=== PATIENT | female | born 1985 | race Caucasian/White ===

== ENCOUNTER 2018-11-25 17:25 | Emergency (ER) | payer OTHER ==
[~2018-11-25] VITALS: Ht 167.6 cm; Wt 134.7 kg
[2018-11-25 17:31] VITALS: BP 127/78
--- NOTE | 2018-11-25 17:55 | NUR ---
Patient ambulated to bed 6
--- NOTE | 2018-11-25 18:10 | NUR ---
PATIENT PRESENTED TO ED AAOX4, GCS 15, STATED "I FEEL DISORIENTED, CONFUSED AND UNABLE TO FOCUS." PATIENT MENTIONED THAT SHE HAVEN'T TAKEN MEDICATIONS FOR 2 MONTHS NOW. C/O HEADACHE 4/10 THAT DOES NOT RADIATED, C/O N/V/D FOR ONE WEEK, RESPIRATIONS EVEN AND UNLABORED, IN NO ACUTE DISTRESS, ED PROVIDED MADE AWARE. HX: BIPOLAR, HYPOTHYROIDISM
[2018-11-25] MEDS ORDERED: NACL 0.9% 1,000 ML IV ONE (19:15)
--- NOTE | 2018-11-25 19:34 | NUR ---
Dr. Connolly evaluating patient at bedside.
[2018-11-25 19:43] LABS: BASOPHILS # (AUTO) 0.1 K/uL (0.00-0.22); BASOPHILS % (AUTO) 0.8 % (0.0-2.0); EOSINOPHILS # (AUTO) 0.2 K/uL (0-0.4); EOSINOPHILS % (AUTO) 2.5 % (0.0-4.0); HEMATOCRIT 45.3 % (36-48); HEMOGLOBIN 15.2 g/dL (12.0-16.0); LYMPHOCYTES # (AUTO) 2.3 K/uL (2.5-16.5); LYMPHOCYTES % (AUTO) 25.8 % (20.5-51.1); MEAN CORPUSCULAR HEMOGLOBIN 32 pg (27-31); MEAN CORPUSCULAR HGB CONC 34 g/dL (33-37); MEAN CORPUSCULAR VOLUME 94.1 fL (80-94); MONOCYTES # (AUTO) 0.5 K/uL (0.8-1.0); MONOCYTES % (AUTO) 5.9 % (1.7-9.3); NEUTROPHILS # (AUTO) 5.8 K/uL (1.8-7.7); PLATELET COUNT (AUTO) 294 K/uL (140-450); RED BLOOD CELL COUNT(AUTO) 4.81 MIL/uL (4.20-5.40); WHITE BLOOD COUNT (AUTO) 8.9 K/uL (4.8-10.8)
[2018-11-25 19:55] LABS: ANION GAP 11.4 (8-16); CREATININE 1.1 mg/dL (0.6-1.3); POTASSIUM 4.4 mmol/L (3.5-5.1)
[2018-11-25 20:09] LABS: ALBUMIN 4.1 g/dL (3.4-5.0); TOTAL BILIRUBIN 0.4 mg/dL (0.0-1.0)
[2018-11-25] MEDS ORDERED: LORazepam 2 MG/ML VIAL IVP ONE (20:10)
--- NOTE | 2018-11-25 20:22 | NUR ---
PATIENT REFUSED ATIVAN ORDER AT THIS TIME, DR. DEJESUS MADE AWARE.
--- NOTE | 2018-11-25 21:10 | NUR ---
CRITICAL LAB IS 249.84 TSH, ER MADE AWARE OF STATUS. MD TO SEE PT.
[2018-11-25 21:11] LABS: THYROID STIMULATING HORMONE 249.84 uIU/mL (0.34-3.74)
[2018-11-25 21:45] VITALS: BP 110/60
--- NOTE | 2018-11-25 21:45 | NUR ---
Patient discharged with v/s stable. Written and verbal after care instructions given and explained. Patient alert, oriented and verbalized understanding of instructions. Ambulatory with steady gait. All questions addressed prior to discharge. ID band removed. Patient advised to follow up with PMD. Rx of LEVOTHYROXINE 175 MCG given. Patient educated on indication of medication including possible reaction and side effects. Opportunity to ask questions provided and answered.
[2018-11-26] MEDS ORDERED: LEVOTHYROXINE 0.1 MG TAB PO SCH (06:30)
== END 2018-11-25 21:45 | disposition home or self-care (01) ==
LOC: MED 17:25
DX: E03.9 Hypothyroidism, unspecified (principal); F41.0 Panic disorder [episodic paroxysmal anxiety]; Z91.14 Patient's other noncompliance with medication regimen; Z90.710 Acquired absence of both cervix and uterus; Z88.2 Allergy status to sulfonamides
CPT/HCPCS: 36415; 80053; 84443; 85025; 99283; J7030; J2060